=== PATIENT | male | born 1985 | race African-American/Black ===

== ENCOUNTER 2016-06-13 12:21 | Day surgery (SDC) | payer BC ==
[~2016-06-13] VITALS: Ht 177.8 cm; Wt 77.9 kg
[2016-06-13 13:15] VITALS: Ht 177.8 cm; Wt 77.9 kg
[2016-06-13 13:23] VITALS: BP 115/77; PULSE 78; RESP 16
[2016-06-13] MEDS ORDERED: MIDAZOLAM 1 MG/ML 2 ML INJ ONE ×3 (14:55)
[2016-06-13] MEDS ORDERED: FENTAnyl 50 MCG/ML VIAL ONE (14:55)
[2016-06-13 15:06] VITALS: BP 111/61; PULSE 62; RESP 18
--- NOTE | 2016-06-13 17:44 | GILP ---
DATE OF PROCEDURE: 06/13/2016 PROCEDURE DONE: Colonoscopy up to cecum. PREOPERATIVE DIAGNOSIS: Rectal bleeding. POSTOPERATIVE DIAGNOSIS: Very tortuous left colon. I had to change the scope during the procedure from adult video colonoscope to pediatric colonoscope . DESCRIPTION OF PROCEDURE: The patient was put in left lateral decubitus after obtaining informed co nsent. He was given 4 mg IV Versed and 100 mcg of fentanyl during the procedure. Rectal exam done. Advanced initially an adult Olympus video colonoscope to about the descending colon due to very to rtuous left colon. I was unable to pass the scope further because of pain. I had to withdraw the s cope out completely. Then the patient was monitored and I advanced a pediatric Olympus video colono scope. By reducing the left colon tortuosity, I was able to enter the right colon easily. Cecum, a scending colon, transverse colon, descending colon normal except sigmoid and descending colon is alfreda te tortuous. Rectosigmoid normal. Rectum normal. Upon removal of scope, patient had no complicati on. PLAN: Will be to advise him to drink more fluids. Follow up with primary MD. Repeat colonoscopy i n 10 years. Dictated By: BLANCA WILDE/SHERITA Conf#: [id number] DID#: [id number] CC: BLANCA MEYER M.D.; Stephen Jung MD;*EndCC*
== END 2016-06-13 16:43 | disposition home or self-care (01) ==
LOC: GIL 12:21
PROVIDERS: ATTEND Internal Medicine
DX: K63.89 Other specified diseases of intestine (principal)
CPT/HCPCS: 45378; J2250; J3010; Z7610

== ENCOUNTER 2017-01-16 15:16 | Emergency (ER) | payer BC ==
[~2017-01-16] VITALS: Ht 165.1 cm; Wt 79.5 kg
[2017-01-16 15:19] VITALS: Ht 165.1 cm; Wt 79.5 kg
[2017-01-16 15:53] LABS: URINE BLOOD (Dip) POC Negative (NEGATIVE)
[2017-01-16 16:08] LABS: BASOPHIL # 0.1 10^3/ul (0.0-0.1); BASOPHILS % 0.8 % (0.0-2.0); EOSINOPHILS # 0.1 10^3/ul (0.0-0.5); EOSINOPHILS % 0.9 % (0.0-7.0); HEMATOCRIT 43.5 % (42.0-52.0); HEMOGLOBIN 14.6 g/dl (14.0-18.0); LYMPHOCYTES # 1.7 10^3/ul (0.8-2.9); LYMPHOCYTES % 21.9 % (15.0-51.0); MEAN CORPUSCULAR HEMOGLOBIN 28.3 pg (29.0-33.0); MEAN CORPUSCULAR HGB CONC 33.6 g/dl (32.0-37.0); MEAN CORPUSCULAR VOLUME 84.5 fl (82.0-101.0); MEAN PLATELET VOLUME 9.9 fl (7.4-10.4); MONOCYTE # 0.6 10^3/ul (0.3-0.9); MONOCYTES % 7.5 % (0.0-11.0); NEUTROPHIL # 5.2 10^3/ul (1.6-7.5); NEUTROPHILS % 68.5 % (39.0-77.0); PLATELET COUNT 269 10^3/UL (140-415); RED BLOOD COUNT 5.15 10^6/ul (4.70-6.10); RED CELL DISTRIBUTION WIDTH 11.9 % (11.5-14.5); WHITE BLOOD COUNT 7.6 10^3/ul (4.8-10.8)
[2017-01-16 16:32] LABS: ALBUMIN 4.5 g/dl (3.3-4.9); ALBUMIN/GLOBULIN RATIO 1.6; BILIRUBIN,INDIRECT 0.3 mg/dl (0-1.1); BILIRUBIN,TOTAL 0.3 mg/dl (0.2-1.3); CALCIUM 9.1 mg/dl (8.4-10.2); CREATININE 0.94 mg/dl (0.61-1.24); TOTAL PROTEIN 7.3 g/dl (6.1-8.1)
[2017-01-16] MEDS ORDERED: ACET500C5 PO (16:50)
--- NOTE | 2017-01-16 16:53 | ERD ---
ER Documentation Chief Complaint Chief Complaint Complains of left quadrant abdominal pain HPI This 31-year-old male presents with approximately 3 day history of pain in the left upper quadrant or left midabdomen. Denies any history of trauma or inciting events. It is worse with movement and is sharp. Denies any materia or urinary complaints. He denies any right-sided abdominal pain, or lower abdominal pain. He denies any vomiting, chest pain or shortness of breath and denies any recent illnesses or fevers. ROS All systems reviewed and are negative except as per history of present illness. Medications Home Meds Active Scripts Acetaminophen* (Tylophen*) 500 Mg Capsule, 1 CAP PO Q6H Y for PAIN AND OR ELEVATED TEMP, #20 CAP Prov:TERRA WHITE MD 01/16/17 Reported Medications [None] No Conflict Check 06/13/16 Allergies Allergies: Coded Allergies: No Known Allergy (Unverified , 01/16/17) PMhx/Soc History of Surgery: Yes (CICUMCISION 10 YEARS OLD) Anesthesia Reaction: No Hx Neurological Disorder: No Hx Respiratory Disorders: No Hx Cardiac Disorders: No Hx Psychiatric Problems: No Hx Miscellaneous Medical Probl: No Hx Alcohol Use: No Hx Substance Use: No Hx Tobacco Use: No Physical Exam Vitals Vital Signs Date Time Temp Pulse Resp B/P Pulse Ox O2 Delivery O2 Flow Rate FiO2 01/16/17 15:19 97.0 70 20 115/70 97 Physical Exam Const: [] Head: Atraumatic Eyes: Normal Conjunctiva ENT: Normal External Ears, Nose and Mouth. Neck: Full range of motion..~ No meningismus. Resp: Clear to auscultation bilaterally Cardio: Regular rate and rhythm, no murmurs Abd: Soft, non tender except for possibly minimal in the left mid abdomen laterally. non distended. Normal bowel sounds Skin: No petechiae or rashes Back: No midline or flank tenderness Ext: No cyanosis, or edema Neur: Awake and alert Psych: Normal Mood and Affect Result Diagram: 01/16/17 1547 01/16/17 1547 Results 24 hrs Laboratory Tests Test 01/16/17 15:47 01/16/17 15:52 White Blood Count 7.610^3/ul Red Blood Count 5.1510^6/ul Hemoglobin 14.6g/dl Hematocrit 43.5% Mean Corpuscular Volume 84.5fl Mean Corpuscular Hemoglobin 28.3pg Mean Corpuscular Hemoglobin Concent 33.6g/dl Red Cell Distribution Width 11.9% Platelet Count 69602^3/UL Mean Platelet Volume 9.9fl Neutrophils % 68.5% Lymphocytes % 21.9% Monocytes % 7.5% Eosinophils % 0.9% Basophils % 0.8% Nucleated Red Blood Cells % 0.0/100WBC Neutrophils # 5.210^3/ul Lymphocytes # 1.710^3/ul Monocytes # 0.610^3/ul Eosinophils # 0.110^3/ul Basophils # 0.110^3/ul Nucleated Red Blood Cells # 0.010^3/ul Sodium Level 146mmol/L Potassium Level 4.0mmol/L Chloride Level 98mmol/L Carbon Dioxide Level 35mmol/L Anion Gap 17 Blood Urea Nitrogen 12mg/dl Creatinine 0.94mg/dl Glucose Level 96mg/dl Calcium Level 9.1mg/dl Total Bilirubin 0.3mg/dl Direct Bilirubin 0.00mg/dl Indirect Bilirubin 0.3mg/dl Aspartate Amino Transf (AST/SGOT) 16IU/L Alanine Aminotransferase (ALT/SGPT) 27IU/L Alkaline Phosphatase 66IU/L Total Protein 7.3g/dl Albumin 4.5g/dl Globulin 2.80g/dl Albumin/Globulin Ratio 1.60 Lipase 92U/L Bedside Urine pH (LAB) 7.5 Bedside Urine Protein (LAB) 1+ Bedside Urine Glucose (UA) Negative Bedside Urine Ketones (LAB) Negative Bedside Urine Blood Negative Bedside Urine Nitrite (LAB) Negative Bedside Urine Leukocyte Esterase (L Negative Procedures/MDM CBC is normal. CMP shows slight elevated CO2 is otherwise normal. Urine shows 1+ protein without hematuria, leukocytes, nitrites. Discussion was had with the patient regarding results. Given normal urine no acute findings on laboratory evaluation no evidence of abdominal infection or emergent condition likely. Further radiologic study was discussed with patient. Given the risk of radiation and no signs or symptoms of emergent condition he agrees to further observation at home, Tylenol for pain. Patient will recheck for persistent symptoms next week. He should otherwise return and was advised on recheck for fevers, vomiting, blood, migration of pain, or new or worsening symptoms as directed and aftercare instructions and agrees with the plan. The patient was stable with no new complaints during the ER course. Clinically, there is no current evidence to suggest meningitis, sepsis, acute abdomen, pneumonia, acute coronary syndrome, pulmonary embolism, or any other emergent condition appearing to require further evaluation or hospitalization. The patient should certainly return for any new or worsening symptoms per the aftercare instructions. They should otherwise follow-up with her primary care doctor for reevaluation this week. Departure Diagnosis: Primary Impression: Abdominal pain Abdominal location: left upper quadrant Qualified Code: R10.12 - Left upper quadrant pain Condition: Stable Patient Instructions: Abdominal Pain Additional Instructions: Examinations normal today. Recommend treat for pain and observe at home. Recommend further study for persistent pain, return for new or worsening symptoms such as fevers, vomiting, blood, additional symptoms. TERRA WHITE MD Jan 16, 2017 16:53
== END 2017-01-16 17:02 | disposition home or self-care (01) ==
LOC: FTE 15:16
DX: R10.12 Left upper quadrant pain (principal)
CPT/HCPCS: 36415; 80053; 81003; 83690; 85025; Z7502; 99283